=== PATIENT | male | born 1965 | race African-American/Black ===

== ENCOUNTER → 2019-12-25 | Day surgery (SDC) | payer MEDICARE, OTHER ==
[~2019-12-25] MED LIST: BACTRIM DS TAB1 EACH PO; DEXAMETHASONE SOD PHOS INJ 4 MG/ML VIAL ONE; DITROPAN XL5 MG PO; EPHEDRINE SULFATE INJ 50 MG/ML VIAL ONE; FINASTERIDE5 MG PO; GABAPENTIN300 MG PO; GENTAMICIN 120MG/NS 100ML 100 ML ONE; IOPAMIDOL 300MG/ML 50ML INFUS..BTL IV ONE; LIDOCAINE HCL 2% LOCAL INJ 5 ML SDV VIAL INJ ONE; LIPITOR10 MG PO; ONDANSETRON HCL INJ 2MG/ML 2ML 2 MG/ML VIAL ONE; PROPOFOL IV EMULSION 10 MG/ML 20 ML VIAL ONE; SEVOFLURANE INHAL SOLN 250 ML PEN BTL ONE
[2019-12-25 09:25] VITALS: BP 129/85
--- NOTE | 2019-12-30 09:36 | Operative Report ---
DATE OF PROCEDURE: 12/25/2019 SURGEON: Martín Hill MD PREOPERATIVE DIAGNOSIS: Massive bladder stone. POSTOPERATIVE DIAGNOSIS: Massive bladder stone. PROCEDURE: Staged cystolitholapaxy. ANESTHESIA: General. ESTIMATED BLOOD LOSS: Minimal. COMPLICATIONS: None. INDICATIONS FOR PROCEDURE: Mr. Holliday is a 54-year-old male, noncompliant, who approximately 7 years ago presented with a massive bladder stone, has been noncompliant with followup and now presents with the same. He has greater than 6 cm of stone burden and I had a long discussion of alternatives, risks, and benefits and he elected to proceed. PROCEDURE IN DETAIL: After informed consent was obtained, the patient was taken to the operative suite, placed in supine on the operative table, underwent general anesthesia by the Anesthesia Service, was placed in dorsal lithotomy position, and sterilely prepped and draped for cystoscopy. A 21-Vincentian cystoscope was inserted per urethra. Normal urethra was noted. Panendoscopy of the bladder revealed no tumors. There was massive stone filling the entire bladder. Utilizing 365 micron laser fiber, approximately 100,000 joules were delivered to the stone until visualization became impossible. At this time, stone fragments were evacuated. Bladder was drained. The patient was awakened from anesthesia and transported to the recovery room in excellent condition with expectations to come back in 1 to 2 weeks for repeat this patient's massive stone endoscopically. MD TARA Patel/MODL /[id number]
== END | disposition home or self-care (01) ==
LOC: OR 05:16
PROVIDERS: ATTEND Urology
DX: N21.0 Calculus in bladder (principal); N39.0 Urinary tract infection, site not specified; R32 Unspecified urinary incontinence; N40.1 Benign prostatic hyperplasia with lower urinary tract symptoms; R35.1 Nocturia; Z91.19 Patient's noncompliance with other medical treatment and regimen; R00.1 Bradycardia, unspecified; G80.9 Cerebral palsy, unspecified; E78.00 Pure hypercholesterolemia, unspecified; F41.9 Anxiety disorder, unspecified; Z01.810 Encounter for preprocedural cardiovascular examination; Z01.812 Encounter for preprocedural laboratory examination; Z11.59 Encounter for screening for other viral diseases
CPT/HCPCS: 52318; 88300; 93005; C1758; J1100; J1580; J2001; J2405; J2704; U0002

== ENCOUNTER → 2020-01-15 | Day surgery (SDC) | payer MEDICARE, OTHER ==
[~2020-01-15] MED LIST changes: -DEXAMETHASONE SOD PHOS INJ 4 MG/ML VIAL ONE; -EPHEDRINE SULFATE INJ 50 MG/ML VIAL ONE; +FENTANYL CITRATE/PF 100MCG/2 ML INJ ONE; -GENTAMICIN 120MG/NS 100ML 100 ML ONE; +GENTAMICIN 80MG/NS 100 ML 100 ML IV ONE; +MEPERIDINE HCL INJ 25 MG/ML VIAL ONE; +MIDAZOLAM HCL 2 MG/2 ML VIAL ONE
[2020-01-15 09:10] VITALS: BP 128/83
--- NOTE | 2020-01-15 11:40 | Operative Report ---
DATE OF PROCEDURE: 01/15/2020 SURGEON: Martín Hill MD PREOPERATIVE DIAGNOSIS: Large greater than 6 cm bladder stone. POSTOPERATIVE DIAGNOSIS: Large greater than 6 cm bladder stone. PROCEDURE: Staged cystolitholapaxy. ANESTHESIA: General. ESTIMATED BLOOD LOSS: Minimal. COMPLICATIONS: None. INDICATIONS: Mr. Holliday is a very pleasant 54-year-old noncompliant male with a history of a very large bladder stone, now presenting for second-stage and hopefully rid him of remaining stone. He voiced understanding of the options, the alternatives, the risks, and the benefits and elected to proceed. PROCEDURE IN DETAIL: After informed consent was obtained, the patient was taken to the operative suite, placed in supine on the operative table, underwent general anesthesia by the Anesthesia Service, was placed in dorsal lithotomy position, and sterilely prepped and draped in standard fashion for cystoscopy. A 22.5-Filipino cystoscope was inserted per urethra. Normal urethra was noted. Trilobar prostatic hypertrophy. Panendoscopy of bladder revealed severe degree of trabeculation. The large fragment of bladder stone was greater than 5 cm. Utilizing a 1000 micron laser fiber, the stone was obliterated. All fragments were extracted. The bladder was drained. The patient was awakened from anesthesia and transported to recovery room in excellent condition. Martín Hill MD ES/MODL /[id number] cc: Aiden Garcia MD MTDD
== END | disposition home or self-care (01) ==
LOC: OR 05:10
PROVIDERS: ATTEND Urology
DX: N21.0 Calculus in bladder (principal); N40.0 Benign prostatic hyperplasia without lower urinary tract symptoms; N32.89 Other specified disorders of bladder; G80.9 Cerebral palsy, unspecified; Z01.812 Encounter for preprocedural laboratory examination; Z11.59 Encounter for screening for other viral diseases
CPT/HCPCS: 52318; C1769; J1580; J2001; J2175; J2250; J2405; J2704; J3010; U0002

== ENCOUNTER → 2023-06-23 | Outpatient (REF) | payer MEDICARE ==
[~2023-06-23] MED LIST changes: -FENTANYL CITRATE/PF 100MCG/2 ML INJ ONE; +FLOMAX0.4 MG PO; -GENTAMICIN 80MG/NS 100 ML 100 ML IV ONE; -IOPAMIDOL 300MG/ML 50ML INFUS..BTL IV ONE; -LIDOCAINE HCL 2% LOCAL INJ 5 ML SDV VIAL INJ ONE; -MEPERIDINE HCL INJ 25 MG/ML VIAL ONE; -MIDAZOLAM HCL 2 MG/2 ML VIAL ONE; -ONDANSETRON HCL INJ 2MG/ML 2ML 2 MG/ML VIAL ONE; -PROPOFOL IV EMULSION 10 MG/ML 20 ML VIAL ONE; -SEVOFLURANE INHAL SOLN 250 ML PEN BTL ONE
== END ==
LOC: RAD 10:48
PROVIDERS: ATTEND Urology
DX: N20.0 Calculus of kidney (principal)
CPT/HCPCS: 74018

== ENCOUNTER → 2024-03-22 | Outpatient (REF) | payer MEDICARE ==
[~2024-03-22] MED LIST changes: +LEVOFLOXACIN250 MG PO; +OXYBUTYNIN CHLOR5 MG PO
== END ==
LOC: CT 15:52
PROVIDERS: ATTEND Urology
DX: N20.0 Calculus of kidney (principal)
CPT/HCPCS: 74176

== ENCOUNTER → 2024-05-10 | Day surgery (SDC) | payer MEDICARE ==
[2024-05-09 11:40] LABS: ANION GAP 13.3 mmol/L (8-16); CALCIUM 9.7 mg/dL (8.4-10.2); CREATININE, SERUM 1.15 mg/dL (0.72-1.25); POTASSIUM 4.3 mmol/L (3.5-5.1); URIC ACID 7.4 mg/dL (4.8-8.0)
[2024-05-09 11:46] LABS: BASOPHILS % 0.6 % (0.0-1.0); EOSINOPHILS # (AUTO) 0.1 (0.0-0.4); HEMATOCRIT 48.8 % (38.2-49.6); HEMOGLOBIN 14.9 g/dL (14.0-18.0); LYMPHOCYTES # (AUTO) 0.8 (1.0-3.2); LYMPHOCYTES % 23.7 % (18.0-39.1); MEAN CORPUSCULAR HEMOGLOBIN 30.6 pg (28-32); MEAN CORPUSCULAR HGB CONC 30.5 g/dL (31-35); MEAN CORPUSCULAR VOLUME 100.2 fL (81-99); MONOCYTES # (AUTO) 0.4 (0.2-0.8); MONOCYTES % 10.4 % (4.4-11.3); NEUTROPHILS # (AUTO) 2.2 (2.1-6.9); NEUTROPHILS % 63.3 % (38.7-80.0); PLATELET COUNT 229 x10e3/uL (140-360); RED BLOOD COUNT 4.87 x10e6/uL (4.3-5.7); WHITE BLOOD COUNT 3.46 x10e3/uL (4.8-10.8)
[~2024-05-10] MED LIST changes: +ACETAMINOPHEN 1000 MG/100 ML 100 ML IV ONE; +DEXAMETHASONE SOD PHOS INJ 4 MG/ML SDV ONE; +EPHEDRINE SULFATE INJ 50 MG/ML VIAL ONE; +FENTANYL CITRATE/PF 100MCG/2 ML INJ ONE; +FLUCONAZOLE100 MG PO; +MIDAZOLAM HCL 2 MG/2 ML VIAL ONE; +ONDANSETRON HCL INJ 2MG/ML 2ML 2 MG/ML VIAL ONE; +PROPOFOL IV EMULSION 10 MG/ML 20 ML VIAL ONE; +SEVOFLURANE INHAL SOLN 250 ML PEN BTL ONE
[2024-05-10] MEDS: LACTATED RINGER'S 1,000 ML ONE (12:02)
[2024-05-10] MEDS: PHENAZOPYRIDINE HCL 100 MG TAB ONE (14:40)
[2024-05-10 15:25] VITALS: BP 153/88; PULSE 63; RESP 16; O2SAT 99
== END | disposition home or self-care (01) ==
LOC: OR 10:52
PROVIDERS: ATTEND Urology
DX: N20.0 Calculus of kidney (principal); N47.1 Phimosis; N39.0 Urinary tract infection, site not specified; N40.0 Benign prostatic hyperplasia without lower urinary tract symptoms; G47.33 Obstructive sleep apnea (adult) (pediatric); E78.5 Hyperlipidemia, unspecified; Z01.810 Encounter for preprocedural cardiovascular examination; Z01.812 Encounter for preprocedural laboratory examination; Z01.818 Encounter for other preprocedural examination; Z79.899 Other long term (current) drug therapy
CPT/HCPCS: 36415; 50590; 54161; 74018; 80048; 84550; 85025; 88304; 93005; C1758; J0131; J0690; J1100; J2405; J2704; J3010; J7121; J2250

== ENCOUNTER 2025-03-03 06:17 | Inpatient (IN) | payer MEDICARE, OTHER ==
[2025-02-25 11:29] LABS: BASOPHILS % 0.7 % (0.0-1.0); EOSINOPHILS % 4.0 % (0.0-6.0); LYMPHOCYTES % 18.8 % (18.0-39.1); MONOCYTES % 8.3 % (4.4-11.3); NEUTROPHILS % 67.7 % (38.7-80.0); RED CELL DISTRIBUTION WIDTH 13.3 % (11.7-14.4)
[2025-02-25 11:59] LABS: EST GLOMERULAR FILTRATION RATE 76.0 ML/MIN (>=60)
[~2025-03-03] VITALS: Ht 170.2 cm; Wt 70.5 kg
[2025-03-03] VITALS (8 sets, daily range): BP systolic 127–142; BP diastolic 81–90; PULSE 72–78; RESP 14–18; TEMP 97.1–98.9; O2SAT 97–100
[~2025-03-03 06:17] MED LIST changes: -ACETAMINOPHEN 1000 MG/100 ML 100 ML IV ONE; -DEXAMETHASONE SOD PHOS INJ 4 MG/ML SDV ONE; -EPHEDRINE SULFATE INJ 50 MG/ML VIAL ONE; -FENTANYL CITRATE/PF 100MCG/2 ML INJ ONE; -MIDAZOLAM HCL 2 MG/2 ML VIAL ONE; -ONDANSETRON HCL INJ 2MG/ML 2ML 2 MG/ML VIAL ONE; -PROPOFOL IV EMULSION 10 MG/ML 20 ML VIAL ONE; -SEVOFLURANE INHAL SOLN 250 ML PEN BTL ONE
[2025-03-03] MEDS: SODIUM CHLORIDE 0.9% 1000ML 1,000 ML ONE (07:17)
[2025-03-03] MEDS: GENTAMICIN 80MG/NS 100 ML 200 ML IV ONE (07:18)
[2025-03-03] MEDS: CEFTRIAXONE 1 GM VIAL ONE (07:18)
[2025-03-03] MEDS ORDERED: PROPOFOL IV EMULSION 10 MG/ML 20 ML VIAL ONE ×2 (08:55→10:14)
[2025-03-03] MEDS ORDERED: MIDAZOLAM HCL 2 MG/2 ML VIAL ONE (08:56)
[2025-03-03] MEDS ORDERED: FENTANYL CITRATE/PF 100MCG/2 ML INJ ONE (08:56)
[2025-03-03] MEDS ORDERED: ONDANSETRON HCL INJ 2MG/ML 2ML 2 MG/ML VIAL ONE (09:01)
[2025-03-03] MEDS ORDERED: LIDOCAINE HCL 2% LOCAL INJ 5 ML SDV VIAL INJ ONE (09:01)
[2025-03-03] MEDS ORDERED: DEXAMETHASONE SOD PHOS INJ 4 MG/ML SDV ONE (09:02)
[2025-03-03] MEDS ORDERED: DIPHENHYDRAMINE HCL 25 MG CAP PO PRN (09:30)
[2025-03-03] MEDS ORDERED: ACETAMINOPHEN 1000 MG/100 ML IV PRN (09:30)
[2025-03-03 12:03] LABS: BASOPHILS % 0.6 % (0.0-1.0); EOSINOPHILS % 1.6 % (0.0-6.0); LYMPHOCYTES % 18.7 % (18.0-39.1); MONOCYTES % 2.7 % (4.4-11.3); NEUTROPHILS % 76.2 % (38.7-80.0); RED CELL DISTRIBUTION WIDTH 13.1 % (11.7-14.4)
[2025-03-03 12:21] LABS: EST GLOMERULAR FILTRATION RATE 65.0 ML/MIN (>=60)
[2025-03-03] MEDS: SODIUM CHLORIDE 0.9% 1000ML 1,000 ML IV SCH (13:05)
[2025-03-03] MEDS: SENNA-S TABLET PO SCH (16:51)
[2025-03-03] MEDS ORDERED: EPHEDRINE SULFATE INJ 50 MG/ML VIAL ONE (23:11)
[2025-03-03] MEDS ORDERED: SEVOFLURANE INHAL SOLN 250 ML PEN BTL ONE (23:11)
[2025-03-04] VITALS (10 sets, daily range): BP systolic 122–176; BP diastolic 73–94; PULSE 58–75; RESP 16–20; TEMP 97.8–98.6; O2SAT 98–100
[2025-03-04 05:01] LABS: BASOPHILS % 0.1 % (0.0-1.0); EOSINOPHILS % 0.0 % (0.0-6.0); LYMPHOCYTES % 5.5 % (18.0-39.1); MONOCYTES % 7.6 % (4.4-11.3); NEUTROPHILS % 86.5 % (38.7-80.0); RED CELL DISTRIBUTION WIDTH 12.7 % (11.7-14.4)
[2025-03-04 05:22] LABS: EST GLOMERULAR FILTRATION RATE 85.0 ML/MIN (>=60)
[2025-03-04] MEDS: PHENAZOPYRIDINE HCL 100 MG TAB PO PRN (08:54)
[2025-03-05] VITALS (9 sets, daily range): BP systolic 126–135; BP diastolic 75–89; PULSE 60–77; RESP 16–21; TEMP 97.3–99.5; O2SAT 98–100
[2025-03-05] MEDS: ACETAMINOPHEN/CODEINE 300MG - 30MG TAB PO PRN (04:24)
[2025-03-05 05:26] LABS: BASOPHILS % 0.2 % (0.0-1.0); EOSINOPHILS % 1.5 % (0.0-6.0); LYMPHOCYTES % 13.8 % (18.0-39.1); MONOCYTES % 10.6 % (4.4-11.3); NEUTROPHILS % 73.5 % (38.7-80.0); RED CELL DISTRIBUTION WIDTH 13.2 % (11.7-14.4)
[2025-03-05 06:00] LABS: EST GLOMERULAR FILTRATION RATE 77.0 ML/MIN (>=60)
[2025-03-06 03:30] VITALS: BP 107/73; PULSE 66; RESP 18; TEMP 98.4; O2SAT 100
[2025-03-06 05:14] LABS: BASOPHILS % 0.5 % (0.0-1.0); EOSINOPHILS % 3.1 % (0.0-6.0); LYMPHOCYTES % 19.7 % (18.0-39.1); MONOCYTES % 12.4 % (4.4-11.3); NEUTROPHILS % 64.0 % (38.7-80.0); RED CELL DISTRIBUTION WIDTH 12.9 % (11.7-14.4)
[2025-03-06 05:41] LABS: EST GLOMERULAR FILTRATION RATE 80.0 ML/MIN (>=60)
[2025-03-06 07:00] VITALS: BP 138/87; PULSE 74; RESP 18; TEMP 97.6; O2SAT 98
[2025-03-06 07:33] VITALS: PULSE 72; RESP 18; O2SAT 97
[2025-03-06 12:00] VITALS: BP 141/82; PULSE 60; RESP 18; TEMP 98.2; O2SAT 99
[2025-03-06 16:51] VITALS: BP 126/75; PULSE 67; RESP 18; TEMP 98.7; O2SAT 100
== END 2025-03-06 18:30 | disposition home or self-care (01) | DRG 713 ==
LOC: OR 06:17 → PACU V 09:18 → MED/SURG 12:02
PROVIDERS: ADMIT Internal Medicine; ATTEND Internal Medicine
PROC: 0VB08ZZ Excision of Prostate, Via Natural or Artificial Opening Endoscopic (ICD-10-PCS; principal; 2025-03-03 09:12)
PROC: BT141ZZ Fluoroscopy of Kidneys, Ureters and Bladder using Low Osmolar Contrast (ICD-10-PCS; 2025-03-03 09:12)
PROC: 0TCB8ZZ Extirpation of Matter from Bladder, Via Natural or Artificial Opening Endoscopic (ICD-10-PCS; 2025-03-03 09:12)
DX: N40.1 Benign prostatic hyperplasia with lower urinary tract symptoms (principal); D62 Acute posthemorrhagic anemia; N13.8 Other obstructive and reflux uropathy; C61 Malignant neoplasm of prostate; N21.0 Calculus in bladder; N20.0 Calculus of kidney; R31.0 Gross hematuria; R31.29 Other microscopic hematuria; N39.41 Urge incontinence; R35.0 Frequency of micturition; N47.1 Phimosis; N32.89 Other specified disorders of bladder; R33.8 Other retention of urine; E78.5 Hyperlipidemia, unspecified; Z71.81 Spiritual or religious counseling; Z87.440 Personal history of urinary (tract) infections
CPT/HCPCS: 36415; 74420; 80048; 83735; 85025; 88300; 88305; 93005; 94799; C1758; J0696; J1100; J1580; J2003; J2250; J2405; J7030